=== PATIENT | male | born 1965 | race Caucasian/White ===

== ENCOUNTER 2017-11-02 13:45 | Emergency (ER) | payer SELFPAY ==
[~2017-11-02] VITALS: Ht 188 cm; Wt 119.3 kg
[2017-11-02 13:51] VITALS: Ht 188 cm; Wt 119.3 kg
[2017-11-02 15:49] VITALS: BP 148/88
== END 2017-11-02 15:49 | disposition home or self-care (01) ==
LOC: ED 13:45
DX: S16.1XXA Strain of muscle, fascia and tendon at neck level, initial encounter (principal); S39.012A Strain of muscle, fascia and tendon of lower back, initial encounter; S53.401A Unspecified sprain of right elbow, initial encounter; V49.9XXA Car occupant (driver) (passenger) injured in unspecified traffic accident, initial encounter; Y93.I9 Activity, other involving external motion; Y92.411 Interstate highway as the place of occurrence of the external cause; Y99.8 Other external cause status